=== PATIENT | male | born 1970 | race Caucasian/White ===

== ENCOUNTER 2018-04-19 09:38 | Outpatient (CLI) | payer BC ==
[~2018-04-19 09:38] MED LIST: Iopamidol 370 76% 100 ML VIAL ONE
--- NOTE | 2018-04-19 12:29 | CT ---
CT ABDOMEN WITH AND WITHOUT IV CONTRAST: CT PELVIS WITH AND WITHOUT IV CONTRAST: HISTORY: Gross hematuria. COMPARISON: None available. FINDINGS: The lung bases are clear. There is a Bochdalek hernia present at the right lung base. There are multiple bilateral renal calculi with the largest calculus in the mid portion, right kidney , measuring 6 mm, and the remaining calculi measuring 2 to 3 mm. The largest calculus in the left ki dney is located within the region of the left renal pelvis, measuring 9 mm, with additional scattered calculi in the left kidney. No ureteral calculus is seen, and there is no hydronephrosis. A 4.4 cm fluid signal intensity cystic lesion is seen in the mid portion left kidney, compatible with a cyst. No enhancing renal lesion is identified. A 2.6 cm, oval shaped, hypodense, cystic lesion is seen within the body of the pancreas, near the nec k of the pancreas, with adjacent calcification. This cannot be further characterized on this examina tion. The liver, spleen, bilateral adrenal glands, and incompletely distended urinary bladder demonstrate a normal CT appearance. The prostate gland is enlarged, measuring 6.3 cm in transverse dimensions, with associated prostate c alcifications. There is colonic diverticulosis. There is an irregular, 1.3 cm x 1 cm soft tissue density seen at th e left lateral aspect of the sigmoid colon, of uncertain etiology. This could be related to prominen t diverticulum or an area of scarring; however, a follow-up evaluation is suggested. There is no thi ckening of the mills of the sigmoid colon in this region. A normal caliber appendix is present. Minimal vascular calcification is seen in the abdominal aorta. There is prominent atrophy of the musculature, including the paraspinous musculature, as well as the gluteal musculature and the abdominal wall musculature. Degenerative changes are seen in the spine. There are post surgical changes involving the right prox imal femur. IMPRESSION: 1. Cystic pancreatic lesion. This measures 2.6 cm. Adjacent calcification is present. Further vikas racterization with MRI abdomen is recommended. 2. Nonobstructing bilateral renal calculi, including a calculus in the left renal pelvis, measuring 9 mm. 3. Left renal cyst. No enhancing renal lesion is seen. 4. Colonic diverticulosis with an irregular soft tissue density structure seen at the left lateral a spect of the sigmoid colon, measuring 1.3 cm x 1.1 cm, which may represent a prominent diverticulum a nd/or scarring; however, follow-up evaluation of this structure is suggested. Follow-up evaluation i n six months would be helpful. 5. Enlargement of the prostate gland. 6. Prominent muscular atrophy. POS: [facility]
== END 2018-04-19 09:39 | disposition home or self-care (01) ==
LOC: SCSCT 09:38
PROVIDERS: ATTEND Urology
DX: R31.0 Gross hematuria (principal); K86.9 Disease of pancreas, unspecified; N20.0 Calculus of kidney; N28.1 Cyst of kidney, acquired; K57.30 Diverticulosis of large intestine without perforation or abscess without bleeding; N40.0 Benign prostatic hyperplasia without lower urinary tract symptoms; M62.50 Muscle wasting and atrophy, not elsewhere classified, unspecified site
CPT/HCPCS: 74178

== ENCOUNTER 2019-04-10 07:59 | Day surgery (SDC) | payer BC ==
[2019-04-09 09:19] VITALS: BMI 28.7
[2019-04-10] MEDS ORDERED: ceFAZolin Sodium (SDC) 2 GM/100 ML BAG ONE (08:31)
[2019-04-10] MEDS ORDERED: Fentanyl 100 MCG/2 ML VIAL ONE (09:05)
[2019-04-10] MEDS ORDERED: Bupivacaine HCl 0.5%/Epinephrine 1:200,000/PF 30 ml Vial ONE (09:13)
[2019-04-10] MEDS ORDERED: Lidocaine 2% PF 5 ML VIAL ONE ×2 (09:13→09:48)
[2019-04-10] MEDS ORDERED: Midazolam HCl 2 mg/2 ml Vial ONE (09:42)
[2019-04-10] MEDS ORDERED: PROPOFOL 40 ML ONE (09:42)
[2019-04-10] MEDS ORDERED: Bupivacaine/Epinephrine 0.25% 30 ML VIAL ONE (09:48)
[2019-04-10] MEDS ORDERED: SUGAMMADEX SODIUM 500 MG/5 ML VIAL ONE ×2 (09:59→10:01)
--- NOTE | 2019-04-10 12:08 | OP ---
DATE OF PROCEDURE: 04/10/2019 PREOPERATIVE DIAGNOSES: Sebaceous cyst, back; malignant melanoma, back. POSTOPERATIVE DIAGNOSES: Sebaceous cyst, back; malignant melanoma, back. PROCEDURE PERFORMED: 1. Wide local excision of malignant melanoma, 3 cm in diameter excision, complex layered closure of 7.5 cm in length. 2. Excision of skin cyst, back, 2 cm. ANESTHESIA: General. ESTIMATED BLOOD LOSS: Minimal. ANESTHESIA: TIVA local. ESTIMATED BLOOD LOSS: Minimal. COMPLICATIONS: None. SPECIMEN: Melanoma specimen was marked with two short superior, one long lateral, and sent to Path for final diagnosis. Skin cyst is sent separately. DESCRIPTION OF PROCEDURE: The patient was taken to the operating room and laid supine on the operating room table. After general anesthetic was obtained, the patient was placed in left lateral decubitus position. His back area around the cyst and the skin ulcer from melanoma were shaved, prepped, and draped in a sterile fashion. A 3 cm in greatest diameter elliptical incision was used to excise the malignant melanoma all the way down to the fascia. A layered complex closure was performed with extensive undermining, 7.5 cm in length. Specimen was marked with 2 short superior, one long lateral, and sent to Path for final diagnosis. The wound was closed using 3-0 Vicryl in multiple layers, 4-0 Monocryl and Dermabond. Next, the skin excision was performed in the right upper back for the 2 cm skin cyst. The wound was irrigated and closed using 3-0 Vicryl, 4-0 Monocryl, and Dermabond. The patient was sent to Recovery in stable condition. All sponge counts, needle counts, and lap counts were correct. Job ID: [id number]
[2019-04-10] MEDS ORDERED: PROPOFOL 200 MG/20 ML VIAL ONE (14:02)
--- NOTE | 2019-04-12 05:51 | PQF ---
[facility] POST DISCHARGE CLINICAL DOCUMENTATION IMPROVEMENT CLARIFICATION FORM l Todays Date: 04/12/19 l Patients Name SANCHEZ CRUZ l l Admit Date 04/10/19 l Disch Date 04/10/19 Onsite Case Manager Name Benjamin Kahn Jr. Email: [email or web address] Cell: [phone] To be completed by Onsite Case Manager: Present Clinical Indicators - Signs / Symptoms Results and Location in Medical Record [ ] Documentation of: [ ] [ ] Documentation of: [ ] [ ] Documentation of: [ ] [ ] Documentation of: [ ] [ ] Risks [ ] [ ] [ ] Treatment [ ] Excision of malignant melanoma and excision of skin cyst, back Query for margins of malignant melanoma and skin cyst of back [ ] [ ] To be completed by Physician: REN GORDON The documentation in this patients record requires clarification to ensure coding compliance and accuracy. Check the appropriate box and include in your discharge summary. [ x] margins of 1 cm [ ] [ ] [ ] Please check this box if this does not apply to this patient [ ] Unable to determine [ ] Other diagnosis: Review the following information and exercise your independent professional judgment in responding to the clarification. Based upon the clinical findings, risk factors, and treatment, please clarify if you are treating one of the above probable or suspected diagnoses. Physician Signature: Date Time MTDD
== END 2019-04-10 12:53 | disposition home or self-care (01) ==
LOC: SDC 07:59
PROVIDERS: ATTEND Surgery
PROC: 0HB6XZZ Excision of Back Skin, External Approach (ICD-10-PCS; principal; 2019-04-10)
DX: C43.59 Malignant melanoma of other part of trunk (principal); L72.8 Other follicular cysts of the skin and subcutaneous tissue; G12.9 Spinal muscular atrophy, unspecified; Z79.82 Long term (current) use of aspirin; Z79.899 Other long term (current) drug therapy; Z91.040 Latex allergy status
CPT/HCPCS: 88304; 88305; J0670; J0690; J2001; J2250; J2704; J3010

== ENCOUNTER 2019-05-31 15:20 | Outpatient (CLI) | payer BC ==
--- NOTE | 2019-05-31 17:22 | RAD ---
RIGHT WRIST THREE VIEW: 05/31/19 CLINICAL INDICATION: Fall. FINDINGS: There is a subtle intra-articular fracture of the distal radius, medially and posteriorly. There is m ild osseous demineralization. Narrowing of the radiocarpal articulation is present. IMPRESSION: Subtle intra-articular distal radial fracture. There is associated soft tissue prominence. Recommend orthopedic consultation for further characterization. POS: [facility]
== END 2019-05-31 15:21 | disposition home or self-care (01) ==
LOC: SCSRAD 15:20
PROVIDERS: ATTEND Family Medicine
DX: S69.91XA Unspecified injury of right wrist, hand and finger(s), initial encounter (principal); S52.501A Unspecified fracture of the lower end of right radius, initial encounter for closed fracture; W19.XXXA Unspecified fall, initial encounter

== ENCOUNTER 2019-06-25 15:28 | Outpatient (CLI) | payer BC ==
[2019-06-25 16:26] LABS: Estimated GFR-MDRD - POC Greater than 90
--- NOTE | 2019-06-25 18:05 | MRI ---
EXAM: MRI of the abdomen without and with contrast COMPARISON: CT abdomen/pelvis 04/19/2018 HISTORY: Pancreatic cyst TECHNIQUE: Multiplanar multi sequence MR images were taken of the abdomen without and with IV contras t. [An MRCP was performed.] FINDINGS: Liver: No focal liver lesions or intrahepatic ductal dilatation. Normal signal without dropout on out of phase images. No abnormal enhancement. Gallbladder: No filling defects or gallbladder wall thickening. Common bile duct: Normal caliber without filling defects Adrenal glands: Unremarkable. Kidneys: No hydronephrosis or focal renal lesions. 3.8 cm cyst in the left kidney. No abnormal areas of enhancement. There are low signal intensity foci in the proximal left ureter which likely represent nonobstructing kidney stones. Spleen: Unremarkable. Pancreas: There is a well-circumscribed cyst in the head of the pancreas measuring 1.8 cm in size. No abnormal enhancement. Retroperitoneum: No enlarged lymph nodes Bones: No marrow signal abnormality. IMPRESSION: 1. Simple pancreatic cyst without suspicious enhancement 2. Left renal cyst 3. Nonobstructing left proximal ureteral calculi
== END 2019-06-25 15:29 | disposition home or self-care (01) ==
LOC: MRI 15:28 → SCSMRI 15:29
PROVIDERS: ATTEND Internal Medicine
DX: K86.2 Cyst of pancreas (principal); N28.1 Cyst of kidney, acquired; N20.1 Calculus of ureter
CPT/HCPCS: 74183; 82565

== ENCOUNTER 2020-09-08 08:08 | Day surgery (SDC) | payer BC ==
[2020-09-05 10:20] VITALS: BMI 30.4
--- NOTE | 2020-09-08 09:55 | RAD ---
Lumbar puncture for intrathecal medication ejection HISTORY: Spinal muscular atrophy. FINDINGS: After explaining the procedure and answering all questions, the lower back was prepped and draped in usual sterile fashion. Sterile technique, buffered local anesthesia, fluoroscopic guidance, and a posterior approach were us ed to carefully advance the tip of a 5 inch 22-gauge spinal needle to the thecal sac at the L2-3 level. 5 cc clear CSF was carefully aspirated and discarded. Over the course of 3 minutes, a total volume of 5 cc containing 12 mg Spinraza was carefully instille d into the thecal sac without difficulty. Needle was removed. Patient tolerated the procedure well and was dismissed in good condition. IMPRESSION : Technically successful fluoroscopic guided intrathecal medication injection.
[2020-09-08 10:07] VITALS: BP 160/110; TEMP 98.4
== END 2020-09-08 09:50 | disposition home or self-care (01) ==
LOC: RAD 08:08
PROVIDERS: ATTEND Psychiatry & Neurology Neurology
PROC: 009U3ZZ Drainage of Spinal Canal, Percutaneous Approach (ICD-10-PCS; principal; 2020-09-08)
DX: G12.9 Spinal muscular atrophy, unspecified (principal)
CPT/HCPCS: 62270

== ENCOUNTER 2021-01-08 10:05 | Day surgery (SDC) | payer BC ==
[2021-01-07 11:06] VITALS: BMI 30.4
[~2021-01-08 10:05] MED LIST changes: -Iopamidol 370 76% 100 ML VIAL ONE; +[UNRECOGNIZED DRUG - OTHER] FS SCH
[2021-01-08 11:22] VITALS: BP 156/114; TEMP 96.6
== END 2021-01-08 13:10 | disposition home or self-care (01) ==
LOC: RAD 10:05
PROVIDERS: ATTEND Psychiatry & Neurology Neurology
PROC: 00JU3ZZ Inspection of Spinal Canal, Percutaneous Approach (ICD-10-PCS; principal; 2021-01-08)
DX: G12.9 Spinal muscular atrophy, unspecified (principal); I10 Essential (primary) hypertension; Z79.82 Long term (current) use of aspirin; Z79.899 Other long term (current) drug therapy; Z91.040 Latex allergy status; Z99.3 Dependence on wheelchair
CPT/HCPCS: 62270

== ENCOUNTER 2021-04-22 09:42 | Day surgery (SDC) | payer BC ==
[2021-04-22 10:00] VITALS: BMI 30.1
[2021-04-22] MEDS ORDERED: [UNRECOGNIZED DRUG - OTHER] FS SCH (10:15)
[2021-04-22 11:51] VITALS: BP 162/109; TEMP 98.4
== END 2021-04-22 11:45 | disposition home or self-care (01) ==
LOC: RAD 09:42
PROVIDERS: ATTEND Psychiatry & Neurology Neurology
PROC: 009U3ZX Drainage of Spinal Canal, Percutaneous Approach, Diagnostic (ICD-10-PCS; principal; 2021-04-22)
DX: G12.9 Spinal muscular atrophy, unspecified (principal); Z79.82 Long term (current) use of aspirin; Z79.899 Other long term (current) drug therapy; Z91.040 Latex allergy status
CPT/HCPCS: 62270

== ENCOUNTER 2021-08-17 09:15 | Day surgery (SDC) | payer BC ==
[2021-08-17] MEDS ORDERED: [UNRECOGNIZED DRUG - REMARK] IT SCH (10:15)
[2021-08-17 10:30] VITALS: TEMP 98.1
[2021-08-17 12:02] VITALS: BP 161/113
== END 2021-08-17 11:50 | disposition home or self-care (01) ==
LOC: RAD 09:15
PROVIDERS: ATTEND Psychiatry & Neurology Neurology
PROC: 00JU3ZZ Inspection of Spinal Canal, Percutaneous Approach (ICD-10-PCS; principal; 2021-08-17)
DX: G12.9 Spinal muscular atrophy, unspecified (principal); Z79.82 Long term (current) use of aspirin; Z79.899 Other long term (current) drug therapy; Z91.040 Latex allergy status; Z99.3 Dependence on wheelchair
CPT/HCPCS: 62270

== ENCOUNTER 2021-10-12 14:08 | Outpatient (CLI) | payer BC | END 2021-10-12 14:09 | disposition home or self-care (01) | LOC: BICMAMMO 14:08 | PROVIDERS: ATTEND Family Medicine | DX: Z13.820 Encounter for screening for osteoporosis (principal); M81.0 Age-related osteoporosis without current pathological fracture | CPT/HCPCS: 77080 ==

== ENCOUNTER 2022-01-29 10:51 | Outpatient (CLI) | payer BC | END 2022-01-29 10:52 | disposition home or self-care (01) | LOC: SCSRAD 10:51 | PROVIDERS: ATTEND Urology | DX: N20.2 Calculus of kidney with calculus of ureter (principal) | CPT/HCPCS: 74018 ==

== ENCOUNTER 2022-03-03 12:26 | Outpatient (CLI) | payer BC | END 2022-03-03 12:27 | disposition home or self-care (01) | LOC: SCSCT 12:26 | PROVIDERS: ATTEND Urology | DX: N20.2 Calculus of kidney with calculus of ureter (principal); N13.9 Obstructive and reflux uropathy, unspecified; K76.0 Fatty (change of) liver, not elsewhere classified; K57.30 Diverticulosis of large intestine without perforation or abscess without bleeding | CPT/HCPCS: 74176 ==

== ENCOUNTER 2022-03-25 09:38 | Day surgery (SDC) | payer BC ==
[2022-03-25 10:44] VITALS: BP 138/99; TEMP 98.2
[2022-03-25] MEDS ORDERED: [UNRECOGNIZED DRUG - REMARK] IT SCH (11:00)
== END 2022-03-25 11:10 | disposition home or self-care (01) ==
LOC: RAD 09:38
PROVIDERS: ATTEND Psychiatry & Neurology Neurology
PROC: 00JU3ZZ Inspection of Spinal Canal, Percutaneous Approach (ICD-10-PCS; principal; 2022-03-25)
DX: G12.9 Spinal muscular atrophy, unspecified (principal); Z79.82 Long term (current) use of aspirin; Z79.899 Other long term (current) drug therapy; Z91.040 Latex allergy status
CPT/HCPCS: 62270

== ENCOUNTER 2022-04-29 09:54 | Outpatient (CLI) | payer BC | END 2022-04-29 09:55 | disposition home or self-care (01) | LOC: SCSRAD 09:54 | PROVIDERS: ATTEND Urology | DX: N20.0 Calculus of kidney (principal) | CPT/HCPCS: 74018 ==

== ENCOUNTER 2022-06-03 10:26 | Outpatient (CLI) | payer BC | END 2022-06-03 10:27 | disposition home or self-care (01) | LOC: SCSRAD 10:26 | PROVIDERS: ATTEND Urology | DX: N20.0 Calculus of kidney (principal); N28.89 Other specified disorders of kidney and ureter | CPT/HCPCS: 74018 ==

== ENCOUNTER 2022-07-22 12:32 | Outpatient (CLI) | payer BC ==
[2022-07-22 15:54] LABS: Bilirubin Neg (Negative); Blood, Urine 250 (Negative); Glucose, Urine (Dipstick) Normal (Negative); Ketone, Urine Negative (Negative); Leukocyte Negative (Negative); Nitrite Negative (Negative); Protein, Urine (Dipstick) Negative (Neg-Trace); Urobilinogen Normal mg/dL (Less than 2)
[2022-07-22 15:58] LABS: Clarity Hazy (Clear)
[2022-07-22 16:03] LABS: Hemoglobin 15.8 g/dL (13.5-17.5); Mean Corpuscular HGB CONC 33.7 g/dL (32.0-36.0); Mean Corpuscular Hemoglobin 29.7 pg (27.0-33.0); Mean Corpuscular Volume 88.2 fl (81.2-95.1); Mean Platelet Volume 10.6 fl (7.4-10.4); Platelet Count 228 10x3/uL (150-450); Red Blood Cell (RBC) Count 5.32 10x6/uL (4.32-5.72)
[2022-07-22 16:04] LABS: PTT 28.8 sec (22.0-33.0); Prothrombin Time 10.8 sec (9.5-12.1)
[2022-07-22 16:10] LABS: Bacteria/HPF Rare-Few HPF (None Seen); RBC/HPF Greater than 50 HPF (0-3); Squamous Epithelial 0-3 HPF (0-3); WBC/HPF 0-3 HPF (0-3)
[2022-07-22 16:51] LABS: Anion Gap 16 mmol/L (10-20); BUN (Urea Nitrogen) 15 mg/dL (8.4-25.7); Calc. Creatinine Clearance 0 mL/min (70-130); Calcium 10.6 mg/dL (7.8-10.44); Carbon Dioxide 23 mmol/L (22-29); Chloride 108 mmol/L (98-107); Estimated GFR 126; Glucose 99 mg/dL (70-105); Potassium 4.6 mmol/L (3.5-5.1); Sodium 142 mmol/L (136-145)
== END 2022-07-22 12:33 | disposition home or self-care (01) ==
LOC: LABBT 12:32
PROVIDERS: ATTEND Urology
DX: Z01.818 Encounter for other preprocedural examination (principal); N20.0 Calculus of kidney
CPT/HCPCS: 80048; 81001; 85027; 85610; 85730; 87086; 93005; 93010

== ENCOUNTER 2022-07-29 09:28 | Day surgery (SDC) | payer BC ==
[2022-07-28 11:52] VITALS: BMI 28.5
[2022-07-29] MEDS ORDERED: Iopamidol 0 ML ONE (11:27)
[2022-07-29] MEDS ORDERED: Levofloxacin 500 mg/D5W 100 ml Premix Bag ONE (11:39)
[2022-07-29] MEDS ORDERED: fentaNYL PF 100 MCG/2 ML SYRINGE ONE (11:43)
[2022-07-29] MEDS ORDERED: SUGAMMADEX SODIUM 200 MG/2 ML VIAL ONE (11:44)
[2022-07-29] MEDS ORDERED: Ondansetron PF 4 MG/2 ML Vial ONE (11:56)
[2022-07-29] MEDS ORDERED: Rocuronium Bromide 10 MG/ML (10ML VIAL) ONE (11:56)
[2022-07-29] MEDS ORDERED: Dexamethasone 20 MG/5 ML VIAL ONE (11:56)
[2022-07-29] MEDS ORDERED: PROPOFOL 200 MG/20 ML VIAL ONE (11:56)
[2022-07-29] MEDS ORDERED: Oxybutynin 5 MG TAB ONE (13:43)
[2022-07-29] MEDS ORDERED: Phenazopyridine HCl 100 MG TAB ONE (13:43)
== END 2022-07-29 17:08 | disposition home or self-care (01) ==
LOC: SDC 09:28
PROVIDERS: ATTEND Urology
PROC: 0TC78ZZ Extirpation of Matter from Left Ureter, Via Natural or Artificial Opening Endoscopic (ICD-10-PCS; principal; 2022-07-29)
PROC: 0T778DZ Dilation of Left Ureter with Intraluminal Device, Via Natural or Artificial Opening Endoscopic (ICD-10-PCS; principal; 2022-07-29)
DX: N20.1 Calculus of ureter (principal); G12.9 Spinal muscular atrophy, unspecified; Z79.899 Other long term (current) drug therapy; Z91.040 Latex allergy status; Z91.048 Other nonmedicinal substance allergy status
CPT/HCPCS: 74420; 82365; 88300; C1769; C2617; J1100; J1956; J2405; J2704; J7620; J7643; Q9967

== ENCOUNTER 2022-10-01 10:23 | Outpatient (CLI) | payer BC ==
[2022-10-01] MEDS ORDERED: Heparin 1,000 UNITS/ML VIAL ONE (13:34)
== END 2022-10-01 10:24 | disposition home or self-care (01) ==
LOC: NM 10:23
PROVIDERS: ATTEND Urology
DX: N26.1 Atrophy of kidney (terminal) (principal); N13.9 Obstructive and reflux uropathy, unspecified
CPT/HCPCS: 78708; A4641; A9562

== ENCOUNTER 2022-12-20 09:18 | Outpatient (CLI) | payer BC ==
[2022-12-20 16:22] LABS: Hemoglobin A1c 5.4 % (4.0-6.0)
[2022-12-20 17:26] LABS: ALT (SGPT) 39 U/L (8-55); AST (SGOT) 17 U/L (5-34); Albumin 4.3 g/dL (3.5-5.0); Alkaline Phosphatase 69 U/L (40-110); Anion Gap 14 mmol/L (10-20); BUN (Urea Nitrogen) 16 mg/dL (8.4-25.7); Bilirubin, Total 0.3 mg/dL (0.2-1.2); Calc. Creatinine Clearance 0 mL/min (70-130); Calcium 10.3 mg/dL (7.8-10.44); Carbon Dioxide 21 mmol/L (22-29); Cardiac Risk 4.1 (Less than 4.5); Chloride 108 mmol/L (98-107); Cholesterol 152 mg/dl (< 200 Desired); Estimated GFR 125; Globulin 2.4 g/dL (2.4-3.5); Glucose 127 mg/dL (70-105); HDL Cholesterol 37 mg/dL (>60 Neg Risk); LDL Cholesterol, Calculated 92 mg/dL; Potassium 4.3 mmol/L (3.5-5.1); Protein, Total 6.7 g/dL (6.0-8.3); Sodium 139 mmol/L (136-145); Triglycerides 113 mg/dL (Less than 150)
== END 2022-12-20 09:19 | disposition home or self-care (01) ==
LOC: SCSCT 09:18
PROVIDERS: ATTEND Urology
DX: N20.0 Calculus of kidney (principal); N13.1 Hydronephrosis with ureteral stricture, not elsewhere classified
CPT/HCPCS: 36415; 74176; 80053; 80061; 82306; 83036; 83970; 84305

== ENCOUNTER 2022-12-28 09:14 | Day surgery (SDC) | payer BC ==
[2022-12-28] MEDS ORDERED: [UNRECOGNIZED DRUG - OTHER] IT SCH (09:45)
[2022-12-28 11:00] VITALS: BP 144/105; TEMP 98.2
== END 2022-12-28 10:48 | disposition home or self-care (01) ==
LOC: RAD 09:14
PROVIDERS: ATTEND Psychiatry & Neurology Neurology
PROC: 009U3ZZ Drainage of Spinal Canal, Percutaneous Approach (ICD-10-PCS; principal; 2022-12-28)
DX: G12.9 Spinal muscular atrophy, unspecified (principal); Z79.899 Other long term (current) drug therapy; Z91.040 Latex allergy status; Z91.048 Other nonmedicinal substance allergy status
CPT/HCPCS: 62270

== ENCOUNTER 2023-05-03 09:39 | Day surgery (SDC) | payer BC ==
[2023-05-03] MEDS ORDERED: [UNRECOGNIZED DRUG - REMARK] IT SCH (10:00)
[2023-05-03 10:32] VITALS: BP 131/102; TEMP 98
== END 2023-05-03 11:14 | disposition home or self-care (01) ==
LOC: RAD 09:39
PROVIDERS: ATTEND Psychiatry & Neurology Neurology
PROC: 009U3ZX Drainage of Spinal Canal, Percutaneous Approach, Diagnostic (ICD-10-PCS; principal; 2023-05-03)
DX: G12.9 Spinal muscular atrophy, unspecified (principal); Z91.048 Other nonmedicinal substance allergy status; Z91.040 Latex allergy status
CPT/HCPCS: 62270